=== PATIENT | male | born 1960 | race Caucasian/White ===

== ENCOUNTER 2024-09-14 07:14 | Outpatient (CLI) | payer BC ==
[~2024-09-14] VITALS: Ht 177.8 cm; Wt 113.4 kg
[2024-09-14] MEDS: REGADENOSON 0.4 MG/5 ML SYRG IV ONE ×2 (08:48→08:51)
--- NOTE | 2024-09-24 08:41 | DVHSR ---
APPROVED REPORT Exam: Nuclear Stress Test BMI: 0 Stress Test Details Stress Test: Pharmacologic stress testing performed using 0.4 mg of regadenoson per 5 mL given IV ov er 10 seconds. HR Resting HR: 65 bpmMax Heart Rate (APMHR): 158.475203 bpm Max HR Achieved: 97 bpmTarget HR (85% APMHR): 134.067511 bpm % of APMHR: 61.39 Recovery HR: 70 bpm BP Resting BP: 124/76 mmHg Recovery BP: 123/75 mmHg ECG Resting ECG: Sinus Rhythm Clinical Reason for Termination: Completed protocol Nurse Comments Recieved pt. from [facility]. A/Ox4 on RA. Connected to hospital monitor, VS stable. PIV flushes well. Re viewed POC. Pt. verbalized understanding of procedure including risks and side effects, agrees for st ress testing. Lexiscan stress test performed per protocol. [facility] tech administered Cardiolite. Pt. tolerated well . Pt. stable, no change on exam. VS returned to baseline. Transferred to [facility] via wheelchair w/ te ch. Stress ECG Conclusion lvef 61% inferior infarct and ischemia is noted clinical correlate NM EXAM: Myocardial Perfusion REST/STRESS Imaging Protocol: Rest Tc-99m/Stress Tc-99m 1 day Resting Data Rest SPECT myocardial perfusion imaging was performed in supine position 60 minutes following the int ravenous injection of 11.0 mCi of Tc-99m Sestamibi. Time of rest injection: 07:40 Date: 09/14/2024 Time of rest imagin:40 Date: 09/14/2024 Administration Route: IV Administration Site: Left Hand Pharmacologic Stress Pharmacologic stress test was performed by injecting Regadenoson 0.4 mg IV push followed by the intra venous injection of 33.0 mCi of Tc-99m Sestamibi. Time of stress injection: 08:55 Date: 09/14/2024 Time of stress imagin:55 Date: 09/14/2024 Administration Route: IV Administration Site: Left Hand Gated Stress SPECT was performed 60 minutes after stress injection. The images were gated to evaluate regional wall motion and calculate left ventricular ejection fracti on. Stress only was performed in the Supine position. Nuclear Conclusion Nuclear Findings: positive for ischemia lvef 61% inferior infarct and ischemia is noted clinical correlate
== END 2024-09-14 17:00 | disposition home or self-care (01) ==
LOC: XYW 07:14
PROVIDERS: ATTEND Specialist
DX: I25.9 Chronic ischemic heart disease, unspecified (principal); I21.19 ST elevation (STEMI) myocardial infarction involving other coronary artery of inferior wall; R06.02 Shortness of breath; R42 Dizziness and giddiness
CPT/HCPCS: 78452; 93017; A9500; J2785